=== PATIENT | female | born 1970 | race African-American/Black ===

== ENCOUNTER 2022-07-24 01:19 | Emergency (ER) | payer OTHER ==
[~2022-07-24] VITALS: Ht 152.4 cm; Wt 74.4 kg
[2022-07-24] MEDS ORDERED: ONDANSETRON HCL 4 MG ORAL DISINTEGRATING TAB PO ONE (02:30)
[2022-07-24] MEDS ORDERED: DIPHENHYDRAMINE HCL INJ 50 MG/ML VIAL IM ONE (02:45)
[2022-07-24] MEDS ORDERED: METHYLPREDNISOLONE SOD SUCC 125 MG/2ML VIAL IM ONE (02:45)
[2022-07-24] MEDS ORDERED: METHYLPREDNISOLONE SOD SUCC 125 MG/2ML VIAL ONE (02:59)
[2022-07-24] MEDS ORDERED: ONDANSETRON HCL 4 MG ORAL DISINTEGRATING TAB ONE (03:00)
[2022-07-24] MEDS ORDERED: DIPHENHYDRAMINE HCL INJ 50 MG/ML VIAL ONE (03:00)
[2022-07-24 03:38] VITALS: BP 155/93
== END 2022-07-24 03:48 | disposition home or self-care (01) ==
LOC: FSED 01:32
DX: G43.909 Migraine, unspecified, not intractable, without status migrainosus (principal); T50.995A Adverse effect of other drugs, medicaments and biological substances, initial encounter; I10 Essential (primary) hypertension; M32.9 Systemic lupus erythematosus, unspecified; Z95.0 Presence of cardiac pacemaker; R05.3 Chronic cough
CPT/HCPCS: 96372; 99282; J1200; J2930; Q0126

== ENCOUNTER 2023-05-23 21:02 | Emergency (ER) | payer OTHER ==
[~2023-05-23] VITALS: Ht 152.4 cm; Wt 70.8 kg
[~2023-05-23 21:02] MED LIST: BUTORPHANO10 MG/1 ML; ONDANSETRON ODT4 MG PO
[2023-05-23] MEDS ORDERED: ACETAMIN/BUTALBITAL/CAFFEINE TAB PO ONE (21:30)
[2023-05-23 21:56] LABS: CLARITY,URINE SL CLOUDY (CLEAR); COLOR,URINE AMBER (YELLOW); LEUKOCYTE ESTERASE ,URINE NEGATIVE (NEGATIVE); NITRITE,URINE NEGATIVE (NEGATIVE); PH,URINE 6 (5 - 7)
[2023-05-23 21:57] LABS: BILIRUBIN,URINE SMALL (NEGATIVE); GLUCOSE, URINE NEGATIVE (NEGATIVE); KETONES,URINE NEGATIVE (NEGATIVE); PROTEIN,URINE DIPSTICK 2+ (NEGATIVE); URINE UROBILINOGEN 0.2 mg/dL (0.2 - 1)
[2023-05-23 22:41] LABS: RBC,URINE >50 /HPF (0-5)
[2023-05-23 22:42] LABS: BACTERIA,URINE MANY /HPF; EPITHELIAL CELLS,URINE MODERATE /LPF; WBC,URINE (MAN) 21-50 /HPF (0-5)
[2023-05-23] MEDS ORDERED: CEFDINIR 300 MG CAP ONE (23:19)
[2023-05-23] MEDS ORDERED: PYRIDIUM200 MG PO (23:22)
[2023-05-23] MEDS ORDERED: CEFDINIR300 MG PO (23:22)
[2023-05-23 23:29] VITALS: BP 166/104; PULSE 79; RESP 17; TEMP 98.1; O2SAT 100
[2023-05-23] MEDS ORDERED: CEFDINIR 300 MG CAP PO ONE (23:30)
== END 2023-05-23 23:48 | disposition home or self-care (01) ==
LOC: ER 21:15
DX: G43.909 Migraine, unspecified, not intractable, without status migrainosus (principal); N20.0 Calculus of kidney; N39.0 Urinary tract infection, site not specified; G89.29 Other chronic pain; R10.30 Lower abdominal pain, unspecified; K57.30 Diverticulosis of large intestine without perforation or abscess without bleeding; I10 Essential (primary) hypertension; I50.9 Heart failure, unspecified; M32.9 Systemic lupus erythematosus, unspecified; I25.2 Old myocardial infarction; Z95.810 Presence of automatic (implantable) cardiac defibrillator; Z86.711 Personal history of pulmonary embolism
CPT/HCPCS: 74176; 81001; 99283

== ENCOUNTER 2023-05-30 07:02 | Emergency (ER) | payer OTHER ==
[~2023-05-30] VITALS: Ht 152.4 cm; Wt 69.0 kg
[~2023-05-30 07:02] MED LIST changes: +CEFDINIR300 MG PO; +PYRIDIUM200 MG PO
[2023-05-30 07:35] VITALS: O2SAT 99
[2023-05-30] MEDS ORDERED: HYDROXYZINE HCL25 MG (07:50)
[2023-05-30] MEDS ORDERED: CLONAZEPAM1 MG PO (07:50)
[2023-05-30] MEDS ORDERED: TOPAMAX50 MG PO (07:50)
[2023-05-30] MEDS ORDERED: TRAZODONE HCL50 MG (07:50)
[2023-05-30] MEDS ORDERED: VERAPAMIL ER120 MG PO (07:50)
[2023-05-30] MEDS ORDERED: ASPIRIN EC81 MG PO (07:50)
[2023-05-30] MEDS ORDERED: NASONEX 24HR AL17 ML (07:50)
[2023-05-30] MEDS ORDERED: HYDRALAZINE HCL25 MG PO (07:50)
[2023-05-30] MEDS ORDERED: PROVENTIL HFA6.7 GM INH (07:50)
[2023-05-30] MEDS ORDERED: FUROSEMIDE20 MG (07:50)
[2023-05-30] MEDS ORDERED: BUTORPHANOL (07:50)
[2023-05-30] MEDS ORDERED: LOSARTAN POTAS100 MG PO (07:50)
[2023-05-30] MEDS ORDERED: ISOSORBIDE DINI40 M1 (07:50)
== END 2023-05-30 07:55 | disposition left against medical advice (07) ==
LOC: FSED 07:30
DX: R51.9 Headache, unspecified (principal)

== ENCOUNTER 2023-11-11 04:41 | Emergency (ER) | payer OTHER ==
[~2023-11-11] VITALS: Ht 152.4 cm; Wt 69.9 kg
[~2023-11-11 04:41] MED LIST changes: +ASPIRIN EC81 MG PO; +BUTORPHANOL; +CLONAZEPAM1 MG PO; +CYCLOBENZAPRINE5 MG PO; +FUROSEMIDE20 MG; +HYDRALAZINE HCL25 MG PO; +HYDROXYZINE HCL25 MG; +ISOSORBIDE DINI40 M1; +LOSARTAN POTAS100 MG PO; +NASONEX 24HR AL17 ML; +PROVENTIL HFA6.7 GM INH; +TOPAMAX50 MG PO; +TRAZODONE HCL50 MG; +VERAPAMIL ER120 MG PO
[2023-11-11 04:50] VITALS: PULSE 63; RESP 18; TEMP 98
[2023-11-11] MEDS ORDERED: ULTRAM 50MG50 MG PO (05:17)
[2023-11-11] MEDS: DIPHENHYDRAMINE HCL INJ 50 MG/ML VIAL IM ONE (05:23)
[2023-11-11] MEDS: ONDANSETRON HCL 4 MG ORAL DISINTEGRATING TAB PO ONE (05:24)
[2023-11-11 05:26] VITALS: BP 160/94; PULSE 63; RESP 18; TEMP 98; O2SAT 98
== END 2023-11-11 05:26 | disposition home or self-care (01) ==
LOC: FSED 04:47
DX: G43.909 Migraine, unspecified, not intractable, without status migrainosus (principal); R11.0 Nausea; Z76.5 Malingerer [conscious simulation]; I10 Essential (primary) hypertension; M32.9 Systemic lupus erythematosus, unspecified; F41.9 Anxiety disorder, unspecified; I25.10 Atherosclerotic heart disease of native coronary artery without angina pectoris; I25.2 Old myocardial infarction; J45.909 Unspecified asthma, uncomplicated; Z86.711 Personal history of pulmonary embolism; D57.1 Sickle-cell disease without crisis; Z88.9 Allergy status to unspecified drugs, medicaments and biological substances; Z79.899 Other long term (current) drug therapy
CPT/HCPCS: 96372; 99282; J1200; Q0162

== ENCOUNTER 2023-12-09 20:48 | Emergency (ER) | payer OTHER ==
[~2023-12-09] VITALS: Ht 152.4 cm; Wt 69.9 kg
[~2023-12-09 20:48] MED LIST changes: +ULTRAM 50MG50 MG PO
[2023-12-09 21:44] VITALS: PULSE 76; RESP 18; TEMP 98.1
[2023-12-09] MEDS: ONDANSETRON HCL 4 MG ORAL DISINTEGRATING TAB PO ONE (22:56)
[2023-12-09] MEDS: DIPHENHYDRAMINE HCL INJ 50 MG/ML VIAL IM PRN (22:57)
[2023-12-09] MEDS: Morphine 4mg INJECTION 4 MG/ML INJ IM ONE (23:27)
[2023-12-09 23:45] VITALS: BP 159/97; PULSE 76; RESP 18; TEMP 98; O2SAT 100
== END 2023-12-09 23:45 | disposition home or self-care (01) ==
LOC: FSED 21:21
DX: R51.9 Headache, unspecified (principal); R11.0 Nausea; G93.5 Compression of brain; I10 Essential (primary) hypertension; I50.9 Heart failure, unspecified; J45.909 Unspecified asthma, uncomplicated; I25.10 Atherosclerotic heart disease of native coronary artery without angina pectoris; M32.9 Systemic lupus erythematosus, unspecified; F41.9 Anxiety disorder, unspecified; F32.A Depression, unspecified; Z95.810 Presence of automatic (implantable) cardiac defibrillator; Z86.711 Personal history of pulmonary embolism; Z79.01 Long term (current) use of anticoagulants
CPT/HCPCS: 70450; 99282; J1200; J2270; Q0162

== ENCOUNTER 2023-12-19 01:33 | Emergency (ER) | payer OTHER ==
[~2023-12-19] VITALS: Ht 152.4 cm; Wt 69.9 kg
[2023-12-19] MEDS ORDERED: ONDANSETRON HCL INJ 2MG/ML 2ML 2 MG/ML VIAL ONE (02:55)
[2023-12-19] MEDS ORDERED: DIPHENHYDRAMINE HCL INJ 50 MG/ML VIAL ONE (02:56)
[2023-12-19] MEDS ORDERED: METHYLPREDNISOLONE SOD SUCC 125 MG/2ML VIAL ONE (02:56)
[2023-12-19] MEDS: METHYLPREDNISOLONE SOD SUCC 125 MG/2ML VIAL IV ONE (03:04)
[2023-12-19] MEDS: ONDANSETRON HCL INJ 2MG/ML 2ML 2 MG/ML VIAL IV STA (03:04)
[2023-12-19] MEDS: DIPHENHYDRAMINE HCL INJ 50 MG/ML VIAL IV ONE (03:05)
[2023-12-19] MEDS: SODIUM CHLORIDE 0.9% 500ML 500 ML IV STA (03:05)
[2023-12-19] MEDS: HYDRALAZINE HCL 20 MG/ML VIAL IV STA (04:00)
[2023-12-19 04:23] VITALS: BP 166/92; PULSE 75; RESP 16; TEMP 97.9
[2023-12-19 04:30] VITALS: PULSE 75; RESP 16; TEMP 97.9; O2SAT 98
== END 2023-12-19 04:48 | disposition home or self-care (01) ==
LOC: FSED 01:46
DX: R51.9 Headache, unspecified (principal); I10 Essential (primary) hypertension; I50.9 Heart failure, unspecified; R11.0 Nausea; M32.9 Systemic lupus erythematosus, unspecified; T50.995A Adverse effect of other drugs, medicaments and biological substances, initial encounter; Z86.711 Personal history of pulmonary embolism; Z95.810 Presence of automatic (implantable) cardiac defibrillator
CPT/HCPCS: 99283; J0360; J1200; J2405; J2919; J7040

== ENCOUNTER 2024-01-03 19:47 | Emergency (ER) | payer OTHER ==
[~2024-01-03] VITALS: Ht 152.4 cm; Wt 69.9 kg
[2024-01-03 20:06] VITALS: PULSE 80; RESP 18; TEMP 97.6
[2024-01-03] MEDS: DIPHENHYDRAMINE HCL INJ 50 MG/ML VIAL IM ONE (20:54)
[2024-01-03] MEDS: ONDANSETRON HCL 4 MG ORAL DISINTEGRATING TAB PO ONE (20:54)
[2024-01-03] MEDS ORDERED: ULTRAM 50MG50 MG PO (21:26)
[2024-01-03] MEDS ORDERED: ACETAMINOPHEN/CODEINE 300MG - 30MG TAB PO ONE (21:30)
[2024-01-03] MEDS: TRAMADOL HCL 50 MG TAB PO ONE (21:43)
[2024-01-03 21:55] VITALS: BP 156/110; PULSE 80; RESP 18; TEMP 97.6; O2SAT 100
== END 2024-01-03 21:55 | disposition home or self-care (01) ==
LOC: FSED 20:00
DX: G43.909 Migraine, unspecified, not intractable, without status migrainosus (principal); R05.9 Cough, unspecified; M32.9 Systemic lupus erythematosus, unspecified; I10 Essential (primary) hypertension; I50.9 Heart failure, unspecified; I25.10 Atherosclerotic heart disease of native coronary artery without angina pectoris; F41.9 Anxiety disorder, unspecified; F32.A Depression, unspecified; Z79.01 Long term (current) use of anticoagulants; I25.2 Old myocardial infarction; Z95.810 Presence of automatic (implantable) cardiac defibrillator; Z86.711 Personal history of pulmonary embolism
CPT/HCPCS: 99282; J1200; Q0162

== ENCOUNTER 2024-01-26 00:43 | Emergency (ER) | payer OTHER ==
[~2024-01-26] VITALS: Ht 152.4 cm; Wt 69.9 kg
[2024-01-26 01:00] VITALS: PULSE 72; RESP 18; TEMP 98.7
[2024-01-26 02:05] VITALS: BP 149/84; PULSE 74; RESP 18; TEMP 98.3; O2SAT 98
[2024-01-26] MEDS: ACETAMINOPHEN 325 MG TAB PO ONE (03:24)
[2024-01-26] MEDS: ONDANSETRON HCL 4 MG ORAL DISINTEGRATING TAB PO ONE (03:25)
[2024-01-26] MEDS ORDERED: ACETAMINOPHEN 325 MG TAB ONE (03:25)
[2024-01-26] MEDS: DIPHENHYDRAMINE HCL INJ 50 MG/ML VIAL IM ONE (03:25)
[2024-01-26] MEDS ORDERED: ONDANSETRON HCL 4 MG ORAL DISINTEGRATING TAB ONE (03:25)
[2024-01-26] MEDS ORDERED: DIPHENHYDRAMINE HCL INJ 50 MG/ML VIAL ONE (03:25)
== END 2024-01-26 03:40 | disposition home or self-care (01) ==
LOC: FSED 02:01
DX: G43.909 Migraine, unspecified, not intractable, without status migrainosus (principal); I10 Essential (primary) hypertension; I50.9 Heart failure, unspecified; I25.10 Atherosclerotic heart disease of native coronary artery without angina pectoris; M32.9 Systemic lupus erythematosus, unspecified; J45.909 Unspecified asthma, uncomplicated; G93.5 Compression of brain; I25.2 Old myocardial infarction; Z87.442 Personal history of urinary calculi; Z86.711 Personal history of pulmonary embolism; Z95.0 Presence of cardiac pacemaker
CPT/HCPCS: 99283; J1200; Q0162

== ENCOUNTER 2024-02-01 12:43 | Emergency (ER) | payer OTHER ==
[~2024-02-01] VITALS: Ht 152.4 cm; Wt 69.9 kg
[2024-02-01 12:45] VITALS: PULSE 62; RESP 18; TEMP 98.3
[2024-02-01] MEDS ORDERED: LIDOCAINE HCL 1% LOCAL INJ 20 ML VIAL ONE (13:58)
[2024-02-01] MEDS: ONDANSETRON HCL 4 MG ORAL DISINTEGRATING TAB PO ONE (14:11)
[2024-02-01] MEDS: CEFTRIAXONE 1 GM VIAL IM ONE (14:11)
[2024-02-01] MEDS: DIPHENHYDRAMINE HCL INJ 50 MG/ML VIAL IM ONE (14:11)
[2024-02-01] MEDS: LIDOCAINE HCL 1% LOCAL INJ 20 ML VIAL INJ ONE (14:12)
[2024-02-01 14:47] VITALS: BP 119/57; PULSE 68; RESP 15; TEMP 98.3; O2SAT 99
== END 2024-02-01 14:08 | disposition home or self-care (01) ==
LOC: FSED 12:47
DX: R51.9 Headache, unspecified (principal); R10.9 Unspecified abdominal pain; N39.0 Urinary tract infection, site not specified; R39.89 Other symptoms and signs involving the genitourinary system; Z76.5 Malingerer [conscious simulation]; I10 Essential (primary) hypertension; I50.9 Heart failure, unspecified; M32.9 Systemic lupus erythematosus, unspecified; F41.9 Anxiety disorder, unspecified; I25.2 Old myocardial infarction; Z86.711 Personal history of pulmonary embolism; Z95.810 Presence of automatic (implantable) cardiac defibrillator
CPT/HCPCS: 99283; J0696; J1200; J2001; Q0162